=== PATIENT | male | born 1965 | race Two or more races ===

== ENCOUNTER 2016-05-07 20:50 | Emergency (ER) | payer BC ==
[~2016-05-07] VITALS: Ht 172.7 cm; Wt 74.8 kg
[2016-05-07 21:20] VITALS: BP 135/87
== END 2016-05-07 22:54 | disposition left against medical advice (07) ==
LOC: EDBD 20:50 → ER 20:55
DX: S01.81XA Laceration without foreign body of other part of head, initial encounter (principal); Z53.21 Procedure and treatment not carried out due to patient leaving prior to being seen by health care provider; F10.129 Alcohol abuse with intoxication, unspecified; Y08.89XA Assault by other specified means, initial encounter; Y93.89 Activity, other specified; Y99.8 Other external cause status; Y92.89 Other specified places as the place of occurrence of the external cause

== ENCOUNTER 2020-01-07 00:30 | Emergency (ER) | payer BC ==
[~2020-01-07] VITALS: Ht 172.7 cm; Wt 69.9 kg
[2020-01-07 00:53] VITALS: BP 148/83
== END 2020-01-07 01:01 | disposition left against medical advice (07) ==
LOC: ER 00:30
DX: S60.512A Abrasion of left hand, initial encounter (principal); S60.511A Abrasion of right hand, initial encounter; V89.2XXA Person injured in unspecified motor-vehicle accident, traffic, initial encounter; Y93.I9 Activity, other involving external motion; Y92.488 Other paved roadways as the place of occurrence of the external cause; Y99.8 Other external cause status
CPT/HCPCS: 82962